=== PATIENT | female | born 1985 | race Hispanic/Latino ===

== ENCOUNTER 2021-07-27 09:56 | Day surgery (SDC) | payer BC ==
[2021-07-24 11:35] VITALS: BMI 30.9
[2021-07-24 17:09] LABS: Hemoglobin 12.4 g/dL (12.0-15.5); Mean Corpuscular Hemoglobin 28.2 pg (27.0-33.0); Mean Corpuscular Volume 83.1 fl (81.6-98.3); Mean Platelet Volume 9.3 fl (7.4-10.4); Platelet Count 292 10x3/uL (150-450); RBC Distribution Width 14.3 % (11.5-14.5); Red Blood Cell (RBC) Count 4.39 10x6/uL (3.90-5.03); White Blood Cell (WBC) Count 10.4 10x3/uL (3.5-10.5)
[2021-07-24 17:16] LABS: BHCG - Serum Negative (NEGATIVE); Pregs Control Background? CLEAR/WHITE (CLR/WHITE); Pregs Control Bar Appear? YES (CONTROL BAR)
[2021-07-24 23:48] LABS: SARS-CoV-2 PCR by NAA Not Detected (NotDetected)
[2021-07-27] MEDS ORDERED: CeleCOXIB 100 MG CAP ONE (10:26)
[2021-07-27] MEDS ORDERED: Famotidine/PF 20 mg/2ml Vial ONE (10:27)
[2021-07-27] MEDS ORDERED: Lidocaine 1% MPF 2 ML VIAL ONE (10:27)
[2021-07-27] MEDS ORDERED: ceFAZolin 2 GM/Dextrose 50 ML IVPB ONE (11:52)
[2021-07-27] MEDS ORDERED: Dexmedetomidine 200 MCG/2 ML VIAL ONE (11:53)
[2021-07-27] MEDS ORDERED: PROPOFOL 20 ML ONE (11:56)
[2021-07-27] MEDS ORDERED: Fentanyl 100 MCG/2 ML VIAL ONE (11:56)
[2021-07-27] MEDS ORDERED: Lidocaine 2% PF 5 ML VIAL ONE (11:57)
[2021-07-27] MEDS ORDERED: Ondansetron PF 4 MG/2 ML Vial ONE (11:57)
[2021-07-27] MEDS ORDERED: Dexamethasone 20 MG/5 ML VIAL ONE (11:57)
[2021-07-27] MEDS ORDERED: ePHEDrine Sulfate 50 MG/10 ML VIAL ONE (12:18)
== END 2021-07-27 14:00 | disposition home or self-care (01) ==
LOC: CSHSDC 09:56
PROVIDERS: ATTEND Obstetrics & Gynecology
PROC: 0UB98ZX Excision of Uterus, Via Natural or Artificial Opening Endoscopic, Diagnostic (ICD-10-PCS; principal; 2021-07-27)
PROC: 0UDB7ZX Extraction of Endometrium, Via Natural or Artificial Opening, Diagnostic (ICD-10-PCS; principal; 2021-07-27)
DX: N84.0 Polyp of corpus uteri (principal); N92.0 Excessive and frequent menstruation with regular cycle; E28.2 Polycystic ovarian syndrome; E66.9 Obesity, unspecified; Z68.31 Body mass index [BMI] 31.0-31.9, adult; Z79.84 Long term (current) use of oral hypoglycemic drugs; Z20.822 Contact with and (suspected) exposure to COVID-19; Z79.899 Other long term (current) drug therapy
CPT/HCPCS: 36415; 84703; 85027; 86850; 86900; 86901; 88305; J0690; J1100; J2001; J2405; J2704; J3010; S0028; U0003; U0005